=== PATIENT | female | born 1965 | race Caucasian/White ===

== ENCOUNTER 2018-03-23 13:07 | Outpatient (CLI) | payer BC, SELFPAY ==
--- NOTE | 2018-03-23 13:30 | DI.MAMMO_ITS ---
SYMPTOM/DIAGNOSIS: BREAST CA SCREENING Z12.31 MAMMOGRAMS: Mammograms were interpreted according to the usual protocol including computer analysis with CAD system, tomosynthesis and C view imaging. No masses or microcalcifications are seen. There is nothing to suggest malignancy. Breast density B. IMPRESSION: Category 1, breast density B. Negative mammogram. Routine screening is recommended. SA ASSESSMENT OF FINDINGS: Negative. Category 1. Patient will receive a letter notifying them of these results. BI-RADS category B. There are scattered areas of fibroglandular density.
== END 2018-03-23 13:27 ==
PROVIDERS: PCP Family Medicine; Visit Provider Nurse Practitioner Women's Health
DX: Z12.31 Encounter for screening mammogram for malignant neoplasm of breast (principal)
CPT/HCPCS: 77063; 77067

== ENCOUNTER 2018-04-06 16:06 | Outpatient (REF) | payer MEDICAID, SELFPAY | END 2018-04-06 16:26 | LOC: LBN 16:06 | PROVIDERS: PCP Family Medicine; Visit Provider Nurse Practitioner Family | DX: R30.0 Dysuria (principal) | CPT/HCPCS: 87086 ==

== ENCOUNTER 2018-08-07 11:21 | Outpatient (REF) | payer MEDICAID, SELFPAY ==
[2018-08-07 20:47] LABS: Abs Immature Grans 0.01 k/cumm (0.0-0.09); Absolute Basophil Count 0.02 k/cumm (0.0-0.2); Absolute Eosinophil Count 0.13 k/cumm (0.0-0.7); Absolute Monocyte Count 0.55 k/cumm (0.11-0.7); Absolute Neutrophil Count 3.06 k/cumm (1.2-6.7); Basophils % 0.4; Eosinophils % 2.7; HCT 38.9 % (36.0-46.0); HGB 13.2 g/dL (12.0-15.5); Immature Grans % 0.2; Lymphocytes % 22.6; Mean Corp. HGB Concentration 33.9 g/dL (32.0-36.0); Mean Corpuscular Volume 88.4 fL (80-95); Mean Platelet Volume 9.2 fL (8.0-11.0); Monocytes % 11.3; Neutrophils % 62.8; Platelet Count 342 x1000/uL (130-400); RBC Distribution Width 12.5 % (11.7-14.6); White Blood Cell Count 4.87 k/cumm (4.4-10.8)
[2018-08-07 21:00] LABS: Iron 101 ug/dL (50-175)
[2018-08-07 21:32] LABS: ALT 28 U/L (12-78); AST 22 U/L (15-37); Albumin 3.8 g/dL (3.4-5.0); Alkaline Phosphatase 103 U/L (46-116); Anion Gap 7.2 mmol/L (3-11); BUN 13 mg/dL (7-18); Bilirubin, Total 0.3 mg/dL (0.2-1.0); CO2 30.8 mmol/L (21.0-32.0); CREATININE 0.73 mg/dL (0.55-1.02); Calcium 9.1 mg/dL (8.5-10.1); Chloride 105 mmol/L (98-107); Glucose 77 mg/dL (70-100); Potassium 4.1 mmol/L (3.5-5.1); Sodium 143 mmol/L (136-145); TSH (W/Ref FT4) 1.88 uIU/mL (0.358-3.74); Total Protein 7.4 g/dL (6.4-8.2)
[2018-08-07 22:37] LABS: Vitamin B12 268 pg/mL (193-986)
== END 2018-08-07 11:41 ==
LOC: NCHCN 11:21
PROVIDERS: PCP Family Medicine; Visit Provider Family Medicine
DX: R53.83 Other fatigue (principal)
CPT/HCPCS: 80053; 82607; 83540; 84443; 85025

== ENCOUNTER 2019-04-14 01:33 | Outpatient (CLI) | payer BC, SELFPAY ==
--- NOTE | 2019-04-14 12:26 | DI.MAMMO_ITS ---
EXAM: MAMMO SCREENING CLINICAL HISTORY: SCREENING, Z12.31 TECHNIQUE: Mammograms were interpreted according to the usual protocol including computer analysis w CURRENT CAD system, tomosynthesis and C-view imaging. COMPARISON: [id number] FINDINGS: The breasts are composed of scattered areas of fibroglandular density, breast density category B. No dominant masses or microcalcifications are seen. Examination is compared with prior examinations from 2009 through 2018 and there has been no significant interval change. IMPRESSION: There is no evidence of malignancy. Yearly screening mammography is recommended. Category 1. BI-RADS Cat 1 - Negative Breast Density - Category B - Scattered areas of fibroglandular density
== END 2019-04-14 01:53 ==
PROVIDERS: PCP Family Medicine; Visit Provider Family Medicine
DX: Z12.31 Encounter for screening mammogram for malignant neoplasm of breast (principal)
CPT/HCPCS: 77063; 77067

== ENCOUNTER 2020-04-20 08:01 | Day surgery (SDC) | payer BC, SELFPAY ==
[2020-04-20 08:12] VITALS: BP 142/76; PULSE 60; RESP 18; TEMP 36.5; O2SAT 98
[2020-04-20] MEDS: Lactated Ringers 1,000 ML 80 ML IV (09:01)
--- NOTE | 2020-04-20 10:10 | W.PM.DSUDISC ---
Discharge Plan Disposition Patient Disposition: HOME Condition: Good Discharge Details Reason For Visit: colon scope Attending Provider: rBenda Gaines Primary Care Provider: Corinne Melo Home Meds and New Rx's Prescriptions: Continued lisinopril 5 mg tablet 5 mg PO DAILY RF: 0 escitalopram oxalate 20 mg tablet 10 mg PO DAILY 90 Days RF: 0 metformin 500 mg tablet 1,000 mg PO BID RF: 0 Lumigan 0.01 % drops 1 drp OP DAILY RF: 0 oxybutynin chloride 10 mg tablet extended release 24hr 10 mg PO DAILY RF: 0 Discontinued polyethylene glycol 3350 17 gram/dose powder 238 g PO ONCE Qty: 238 RF: 0 bisacodyl [Dulcolax (bisacodyl)] 5 mg tablet,delayed release (DR/EC) 5 mg PO ONCE Qty: 4 RF: 0 Discharge Instructions Additional Instructions: Findings:normal colon Follow up: repeat in 10 yrs time Please call if you develop: fevers >101.5 Nausea or Vomiting Abdominal pain that is not transient DAY SURGERY UNIT POST COLONOSCOPY INSTRUCTIONS 1. Because there will be medication in your system for the next 24 hours, you may feel a little sleepy. Your coordination will be affected. Therefore: a. Do not drive or operate dangerous equipment for 24 hours. b. Do not drink alcohol beverages for 24 hours (not even beer). c. Plan to go home and rest for the day. 2. Generally there are no restrictions on your activity after a day or so has gone by, but you may feel a bit fatigued for a few days. 3 After you arrive home you may have a light meal and return to a normal diet as you can tolerate it without feeling sick to your stomach. 4. After surgery, you may feel pain or discomfort. This should be only transient, but if it persists please contact your doctor. 5. If there are any questions regarding the findings of your procedure, please feel free to contact your doctor. 6. If you are unable to contact your doctor with a problem, contact the hospital at [phone]. 7. Continue all your regular medications unless directed otherwise. I understand the above instructions and have no questions. Signature of Patient or Responsible Adult Escort Date/Time Name of Responsible Adult Escort Signature of Nurse Date/Time Discharge Orders Discharge Orders: Discharge Order (Routine); Ordered 04/20/20 Ordered By: Brenda Gaines DS: Diagnosis Discharge Diagnosis (1) External hemorrhoids without complication: Status: Acute
--- NOTE | 2020-04-20 10:15 | W.COLOREPORT ---
Date of service: 04/20/20 Time of Service: 10:15 Colonoscopy Report Date of procedure: 04/20/20 Pre-op diagnosis general: colon screen Post-op diagnosis procedure note: same Surgeon: Brenda Gaines Anesthesia proc note operative: GETA Estimated blood loss (mL): 0 Pathology: none sent Complications: None Disposition: same day Prep: Miralax/Dulcolax Retraction Time: 10 mins Procedure Description: After informed consent was obtained the patient was taken to the procedure room and placed in a left decubitous position. Monitors were applied and a time out was done. The patients name, date of , procedure, allergies to medications and metal in their body was reviewed. The patient was then sedated. Once sedated and comfortable a rectal exam was done. External exam hemorrhoids- no inflammation. Internal exam revealed a normal sphincter tone and no palpable masses. The scope was then introduced and retrofelexed. No internal hemorrhoids were identified. The scope was then advanced to the cecum w/out difficulty. The TI and appendiceal orifice were identified. The prep was good. The scope was then slowly retracted over 10 minutes back into the rectum. no AVM's/polyps/diverticula. The scope was removed and the patient was woken up and taken back to Same day surgery in stable condition. The patient tolerated the procedure well and there were no immediate complications. Follow up: The patient should follow up in 10 years unless they develop changes in bowel habits or other new gastrointestinal complaints.
[2020-04-20 10:30] VITALS: BP 130/74; PULSE 49; RESP 17; TEMP 36.3; O2SAT 100
== END 2020-04-20 11:31 | disposition home or self-care (01) ==
PROVIDERS: PCP Family Medicine; Visit Provider Surgery
PROC: 0DJD8ZZ Inspection of Lower Intestinal Tract, Via Natural or Artificial Opening Endoscopic (ICD-10-PCS; CPT 45378; principal; 2020-04-20 09:15)
DX: Z12.11 Encounter for screening for malignant neoplasm of colon (principal); K64.4 Residual hemorrhoidal skin tags; I10 Essential (primary) hypertension; E11.9 Type 2 diabetes mellitus without complications
CPT/HCPCS: 45378; J2001; J2405

== ENCOUNTER 2020-06-14 19:05 | Outpatient (REF) | payer BC, SELFPAY ==
[2020-06-16 14:47] LABS: COVID-19 RT-PCR UVMMC Result Negative (Negative)
== END 2020-06-14 19:25 ==
LOC: NCHCN 19:05
PROVIDERS: PCP Family Medicine; Visit Provider Family Medicine
DX: Z20.828 Contact with and (suspected) exposure to other viral communicable diseases (principal)
CPT/HCPCS: U0003

== ENCOUNTER 2020-07-31 09:05 | Outpatient (REF) | payer BC, SELFPAY ==
[2020-07-31 14:04] LABS: ALT 36 U/L (14-59); AST 20 U/L (15-37); Alkaline Phosphatase 129 U/L (46-116); Anion Gap 6.3 mmol/L (3-11); BUN 13 mg/dL (7-18); Bilirubin, Total 0.4 mg/dL (0.2-1.0); CO2 30.7 mmol/L (21.0-32.0); CREATININE 0.6 mg/dL (0.55-1.02); Calcium 9.4 mg/dL (8.5-10.1); Calculated LDL 132 mg/dL (<100); Chloride 104 mmol/L (98-107); Cholesterol 214 mg/dL (<200); Glucose 124 mg/dL (74-106); HDL Cholesterol 52 mg/dL (40-60); Potassium 4.6 mmol/L (3.5-5.1); Sodium 141 mmol/L (136-145); Total Protein 7.7 g/dL (6.4-8.2); Triglyceride 150 mg/dL (<150)
[2020-07-31 14:18] LABS: Hemoglobin A1C 7.6 % (<5.7)
== END 2020-07-31 09:25 ==
LOC: NCHCN 09:05
PROVIDERS: PCP Family Medicine; Visit Provider Physician Assistant
DX: E11.9 Type 2 diabetes mellitus without complications (principal); R51.9 Headache, unspecified; B07.9 Viral wart, unspecified
CPT/HCPCS: 80053; 80061; 83036

== ENCOUNTER 2020-10-26 11:47 | Outpatient (REF) | payer BC, SELFPAY ==
--- NOTE | 2020-10-26 11:15 | PAPFT_PTH ---
PATIENT: Lauren Mccoy LOC: [facility] U#:[id number] AGE/SX: 55/F ROOM: RE10/26/[address]: MITCH Howard : 1965 BED: DIS: 10/26/2020 SPEC #: [id number] RECD: 10/26/20 13:25 STATUS: CHAGO REEtienne #: [id number] SALLY: 10/26/20 11:[address]: Nina Blanco DEPT: [facility] Cytology RECD BY: Margi Sauceda ENTERED: 10/26/20 13:25 SP TYPE: PAPFT OTHR DR: Corinne Melo Tissues: 1 - CX/ENDOCX FOR PAP SMEARS Procedures: PAP THIN PREP/UVM Screening HPV DNA PROBE Comments: [id number]
== END 2020-10-26 11:48 | disposition home or self-care (01) ==
LOC: LBN 11:47
PROVIDERS: PCP Family Medicine; Visit Provider Nurse Practitioner Family
DX: Z12.4 Encounter for screening for malignant neoplasm of cervix (principal); Z11.51 Encounter for screening for human papillomavirus (HPV)
CPT/HCPCS: 88142; 87624

== ENCOUNTER 2020-10-31 01:12 | Outpatient (CLI) | payer BC, SELFPAY ==
--- NOTE | 2020-10-31 08:00 | DI.MAMMO_ITS ---
Exam(s) MAMMO SCREENING EXAM: MAMMO SCREENING CLINICAL HISTORY: screening TECHNIQUE: Bilateral full field digital CC and MLO mammographic images were obtained with 3D tomosyn thesis and utilizing computer aided detection (CAD). COMPARISON: Available for comparison. FINDINGS: Masses/Architectural Distortion: There is a new 9 mm nodule in the upper outer quadrant of the right breast. There are no areas of architectural distortion in the breasts. Microcalcifications: No suspicious pleomorphic-type are seen. Skin Thickening/Nipple Retraction: None. IMPRESSION: 1. New 9 mm nodule in the upper outer quadrant of the right breast centrally. 2. Further evaluation with spot compression views and a right breast ultrasound are recommended. BI-RADS Category 0 - Assessment Incomplete: Need additional imaging evaluation Breast Density - Category B - Scattered areas of fibroglandular density Breast density category C or D implies that the patient has dense breast tissue. Dense breast tissue is very common and is not abnormal but dense breast tissue can make it harder to find cancer on a ma mmogram. Also, dense breast tissue may increase their breast cancer risk. This information about the result of the mammogram report was provided to the patient to raise their awareness. Use this report when you speak with the patient about their risks for breast cancer, which includes their family hist ory. At that time, you may recommend for more screening tests (Ultrasound or MRI) as they might be us eful based on their risk. A negative radiographic report should not delay biopsy if a dominant or clinically suspicious mass is present. Up to ten percent of cancers are not identified on mammography. A negative report may reinforce clinical impression. Adenosis and dense breasts may obscure an underlying neoplasm. False positive reports average 6 to 10%. Patient will receive a letter notifying them of these results.
== END 2020-10-31 01:32 ==
PROVIDERS: PCP Family Medicine; Visit Provider Nurse Practitioner Family
DX: Z12.31 Encounter for screening mammogram for malignant neoplasm of breast (principal); R92.8 Other abnormal and inconclusive findings on diagnostic imaging of breast
CPT/HCPCS: 77063; 77067

== ENCOUNTER 2020-11-01 01:41 | Outpatient (CLI) | payer BC, SELFPAY ==
--- NOTE | 2020-11-01 | DI.US_ITS ---
Exam(s) MG MAMMO SCREEN CALL BACK UNI US BREAST RT LIMITED EXAM: MG MAMMO SCREEN CALL BACK UNI and U/S breast RT limited CLINICAL HISTORY: F/U MAMMO, ,NEW 9 MM NODULE UOQ. TECHNIQUE: Craniocaudal and mediolateral oblique Full Field Digital Mammography views of the right b reast with Computer Aided Diagnosis followed by Tomosynthesis and right breast ultrasound. COMPARISON: Priors available for comparison. FINDINGS: Mammography/Tomosynthesis: Masses/Architectural Distortion: The nodule in the upper outer quadrant of the right breast persists on the additional views. No associated microcalcifications are seen. Microcalcifictions: No suspicious pleomorphic-type are seen. Skin Thickening/Nipple Retraction: None. Right breast US: Echotexture: Normal appearance of the glandular tissue. Shadowing: No suspicious foci. Cyst: At the 9 o'clock position 4 cm from the nipple there is a cluster of cysts measuring in aggrega te 0.8 cm. This may reflect the mammographic finding. Solid lesions: None seen. Ductal dilation: None. IMPRESSION: 1. No definite evidence for malignancy at this time. 2. A 3 month follow-up right mammogram is recommended for re-evaluation. 3. The findings were discussed with the patient on the date of the examination. BI-RADS Category 3 - Probably Benign Finding: Recommend follow-up imaging in 3 months Breast Density - Category B - Scattered areas of fibroglandular density Breast density Category C or D implies that the patient has dense breast tissue. Dense breast tissue can make it harder to find cancer on a mammogram. Dense breast tissue is also associated with an incr eased risk of breast cancer. This information about the result of the mammogram report was provided to the patient to raise their awareness. Use this report when you speak with the patient about their risks for breast cancer, which includes their family history. At that time, you may recommend additional screening tests (Ultrasoun d or MRI) as these tests may add significant information. A negative radiographic report should not delay biopsy if a dominant or clinically suspicious mass is present. Up to ten percent of cancers are not identified on mammography. A negative report may reinforce clinical impression. Adenosis and dense breasts may obscure an underlying neoplasm. False positive reports average 6 to 10%. Patient will receive a letter notifying them of these results.
== END 2020-11-01 02:01 ==
PROVIDERS: PCP Family Medicine; Visit Provider Nurse Practitioner Family
DX: Z12.31 Encounter for screening mammogram for malignant neoplasm of breast (principal); R92.8 Other abnormal and inconclusive findings on diagnostic imaging of breast; N60.11 Diffuse cystic mastopathy of right breast
CPT/HCPCS: 76642; 77063; 77067

== ENCOUNTER 2021-02-07 02:13 | Outpatient (CLI) | payer BC, SELFPAY ==
--- NOTE | 2021-02-07 06:45 | DI.MAMMO_ITS ---
Exam(s) MG MAMMO DIAGNOSTIC UNI EXAM: MG MAMMO DIAGNOSTIC UNI CLINICAL HISTORY: 3 month f/u right mammogram,R92.8. TECHNIQUE: Craniocaudal and mediolateral oblique Full Field Digital Mammography views of the right breast with Computer Aided Diagnosis followed by Tomosynthesis. COMPARISON: MG Screening Bilat Mammo from 11/13/2016 MG L. Spot - Same Day from 11/19/2016 MG L. Spot - Same Day from 11/19/2016 MG MG MAMMO SCREENING from 04/14/2019 MG MG MAMMO SCREENING from 10/31/2020 MG MG MAMMO SCREENING from 10/31/2020 US BREAST RT LIMITED from 11/01/2020 MG MG MAMMO SCREEN CALL BACK UNI from 11/01/2020 MG MG MAMMO SCREEN CALL BACK UNI from 11/01/2020 US BREAST RT LIMITED from 11/01/2020 FINDINGS: Mammography/Tomosynthesis: The previously noted area of nodularity seen in the central right breast is no longer visible. Masses/Architectural Distortion: None seen. Microcalcifictions: No suspicious pleomorphic-type are seen. Skin Thickening/Nipple Retraction: None. IMPRESSION: 1. No evidence of malignancy is noted. 2. Unless there is more urgent need, follow-up screening mammography is recommended, as per [place] [employer] guidelines. 3. The findings were discussed with the patient on the date of the examination. BI-RADS Category 1 - Negative Breast Density - Category B - Scattered areas of fibroglandular density A negative radiographic report should not delay biopsy if a dominant or clinically suspicious mass is present. Up to ten percent of cancers are not identified on mammography. A negative report may reinforce clinical impression. Adenosis and dense breasts may obscure an underlying neoplasm. False positive reports average 6 to 10%. Patient will receive a letter notifying them of these results.
== END 2021-02-07 02:33 ==
PROVIDERS: PCP Family Medicine; Visit Provider Nurse Practitioner Family
DX: Z12.31 Encounter for screening mammogram for malignant neoplasm of breast (principal); R92.8 Other abnormal and inconclusive findings on diagnostic imaging of breast; N64.59 Other signs and symptoms in breast
CPT/HCPCS: 77061; 77065; G0279

== ENCOUNTER 2021-11-06 10:20 | Outpatient (REF) | payer BC, SELFPAY ==
[2021-11-07 15:30] LABS: COVID-19 RT-PCR UVMMC Result Negative (Negative)
== END 2021-11-06 10:21 | disposition home or self-care (01) ==
LOC: LBN 10:20
PROVIDERS: PCP Family Medicine; Visit Provider Nurse Practitioner Family
DX: Z20.822 Contact with and (suspected) exposure to COVID-19 (principal); R42 Dizziness and giddiness
CPT/HCPCS: U0003

== ENCOUNTER 2022-06-04 13:57 | Outpatient (REF) | payer BC, SELFPAY ==
[2022-06-04 16:22] LABS: Anion Gap 6.4 mmol/L (3-11); BUN 10 mg/dL (7-18); CO2 30.6 mmol/L (21.0-32.0); CREATININE 0.7 mg/dL (0.55-1.02); Calcium 9.1 mg/dL (8.5-10.1); Calculated LDL 117 mg/dL (<100); Chloride 103 mmol/L (98-107); Cholesterol 199 mg/dL (<200); Estimated GFR 100.19 (mL/min/1.73m2); Glucose 140 mg/dL (74-106); HDL Cholesterol 54 mg/dL (40-60); Potassium 4.3 mmol/L (3.5-5.1); Sodium 140 mmol/L (136-145); Triglyceride 144 mg/dL (<150)
[2022-06-04 16:35] LABS: COMMENT (LAB VIEW ONLY) 32.22 mg/dL; Microalb ug/mg Crea 8.1 ug/mg Cr
== END 2022-06-04 13:58 | disposition home or self-care (01) ==
LOC: NCHCN 13:57
PROVIDERS: PCP Family Medicine; Visit Provider Nurse Practitioner Family
DX: E11.9 Type 2 diabetes mellitus without complications (principal); E66.9 Obesity, unspecified
CPT/HCPCS: 80048; 80061; 82043; 82570

== ENCOUNTER 2022-07-31 15:22 | Emergency (ER) | payer BC, SELFPAY ==
--- NOTE | 2022-07-31 15:15 | RT.EKG_ITS ---
APPROVED REPORT Exam: Resting ECG Reason for Exam: Arm numbness Patient Location: E HR:56 bpm ECG Measurements Heart Rate 56 AXIS VT 196 P 6 QRSd 81 QRS 36 QT 398 T 34 QTc 386 Conclusion Sinus bradycardia...rate< 60 Low voltage, precordial leads...precordial leads <1.0mV
[2022-07-31 15:27] VITALS: TEMP 36.6
--- NOTE | 2022-07-31 15:30 | DI.MRI_ITS ---
Exam(s) MR BRAIN WO EXAM: MR BRAIN WO CLINICAL HISTORY: ?cva. TECHNIQUE: Multiplanar multisequence MRI of the brain was performed. CONTRAST MATERIAL: Noncontrast. COMPARISON: No exams were available for comparison FINDINGS: VENTRICLES AND EXTRA AXIAL SPACES: Normal in size and morphology for the patient's age. HEMORRHAGE: None. CEREBRAL PARENCHYMA: No focus of restricted diffusion to suggest acute infarct. No space-occupying le leeanna identified. MIDLINE SHIFT: None. BRAINSTEM/CEREBELLUM: Normal. VISUALIZED PARANASAL SINUSES/MASTOIDS: Clear. OTHER FINDINGS: Orbits and pituitary are unremarkable. Vascular flow voids are intact. IMPRESSION: Unremarkable MRI of the brain. DATA REPOSITORY:
--- NOTE | 2022-07-31 15:30 | DI.MRI_ITS ---
Exam(s) MR ANGIO BRAIN WO CLINICAL HISTORY: ?stroke. TECHNIQUE: 3D gyhi-xb-wedsni study was performed without contrast. COMPARISON: None. FINDINGS: Carotid Arteries: Petrous: Normal. Cavernous: Normal. Cerebral: Normal. Middle Cerebral Arteries: Right: No aneurysm or significant stenosis. Left: No aneurysm or significant stenosis. Anterior Cerebral Arteries: Right: No aneurysm or significant stenosis. Left: No aneurysm or significant stenosis. Posterior cerebral arteries: Right: No aneurysm or significant stenosis Left: No aneurysm or significant stenosis Vertebral Arteries: Right: No aneurysm or significant stenosis. No dissection. Left: No aneurysm or significant stenosis. No dissection.. Basilar Artery: No aneurysm or significant stenosis. Small Vessels: No evidence of beading. IMPRESSION: Normal MRA examination of the [place]. DATA REPOSITORY:
--- NOTE | 2022-07-31 15:30 | DI.MRI_ITS ---
Exam(s) MR ANGIO NECK WO EXAM: MR ANGIO NECK WO CLINICAL HISTORY: ?stroke. TECHNIQUE: Multiplanar multisequence MRA of the Neck was performed. COMPARISON: MR MR ANGIO BRAIN WO from 07/31/2022 FINDINGS: Common Carotid: Right: No dissection, occlusion or significant stenosis. Left: No dissection, occlusion or significant stenosis. External Carotid: Right: No evidence of occlusion or significant stenosis. Left: No evidence of occlusion or significant stenosis. Internal Carotid: Right: No dissection, occlusion or significant stenosis. Left: No dissection, occlusion or significant stenosis. Vertebral Artery: Right: No dissection, occlusion or significant stenosis. Left: No dissection, occlusion or significant stenosis. The visualized paraspinal soft tissues are unremarkable. IMPRESSION: No evidence of dissection, occlusion or significant stenosis. DATA REPOSITORY:
[2022-07-31 15:31] VITALS: BP 156/82; PULSE 59; PULSE 62; RESP 10
[2022-07-31 15:33] VITALS: BP 156/82; PULSE 55; RESP 18; O2SAT 100
--- NOTE | 2022-07-31 15:44 | ED.GENADUL_ITS ---
Discharge Plan Disposition Patient Disposition: Home Condition: Stable Discharge Details Clinical Impression: Numbness, COVID Primary Care Provider: Unknown,Unknown ED Provider: Wily Romero Home Meds and New Rx's Prescriptions: Continued oxybutynin chloride 5 mg tablet 5 mg PO DAILY lisinopril 5 mg tablet 5 mg PO DAILY oxybutynin chloride 10 mg tablet extended release 24hr 10 mg PO DAILY Ozempic 0.25 mg or 0.5 mg(2 mg/1.5 mL) pen injector 1 device SUBCUT QWEEK Discharge Instructions Instructions: Paresthesia (ED) Additional Instructions: your MRI and blood work did not show concerning findings. You did incidentally test positive for covid follow up with your primary care provider if you feel more ill, have worsening weakness or difficulty breathing return to the emergency department Stand Alone Forms: POSITIVE COVID-19/NO TESTING Medical Decision Making 57 yo female with hx of htn, dm, who comes in with 4 days of left arm numbness and one day of left leg numbness. She states she was seen by her pcp office 4 days ago and was referred to [facility] and at that time she had a rash under her left arm that they diagnosed as an infection and was treated with oral antibiotics and rash resolved. She states her left hand and forearm numbness never resolved and last night started to have numbness in the left foot. She denies vision changes, weakness, falls, walking normally and able to drive here without difficulty. No chest pain, back pain, neck pain, headaches, fevers, chills, abdominal pain. She arrives stable speaking in full sentences. She has clear speech, CN II-XII intact. No drift, caox4. Her NIH on arrival is 1 due to very mild change in soft sensation in her left hand and left foot to soft touch, she states she can feel the touch but it feels different to the other side. She states the numbness is throughout the whole hand and not localized to certain areas or fingers and is also throughout the foot. Given reassuring exam cva unlikely but will obtain MRI to evaluate further, symptoms started 4 days ago so not a lytic or interventional candidate. She has no back pain, no fevers/chills, no ivdu so doubt entities such as discititis, osteo, spinal epidural abscess. Will check cbc, cmp and reassess. Suspect this could be peripheral neuropathy from her diabetes. pt stable, mri and mra unremarkable, blood work also unremarkable, she is positi ve incidentally for covid, no respiratory symptoms. She still has no deficits other than subtle decrease to soft tocuh in the left hand and left foot, normal motor exam. Discussed results with pt and given reassuring workup she is comfortable with d/c and follow up with her pcp. She is willing to take paxlovid so this was provided as well, return precautions given Differential Diagnosis Differential Diagnosis: electrolyte abnormality, neuropathy Imaging Data Radiologic Study: Attestation: I personally reviewed and interpreted this imaging study as follows: Imaging: MRI Radiologist's impression: no acute findings mri and mra Lab Data Lab results reviewed: Yes I reviewed the patient's lab results. ECG Data Attestation: I personally reviewed and interpreted this ECG (s) as follows: Prior ECG tracings: not available for review Interpretation: sinus bradycardia, rate of 56, pr 196, no acute st t wave ischemic findings HPI General Mode of arrival: ambulatory . Date/Time Provider Initiated Documentation: 07/31/22 15:24 . Limitations to Documentation: no limitations . Information obtained by: patient . History of Present Illness 57 year old F presents to the emergency department with the chief complaint of left arm and leg numbness, described as moderate, Patient started experiencing this day(s) (4) and it has been constant. No relieving factors improve symptom(s), No exacerbating factors reported . Patient notes denies chest pain, fever/chills, headaches and nausea/vomiting. Patient did receive the following treatments prior to arrival, none Related Data Home Medications Medication Instructions Recorded Confirmed lisinopril 5 mg tablet 5 mg PO DAILY 02/25/20 07/31/22 oxybutynin chloride 10 mg 10 mg PO DAILY 02/25/20 07/31/22 tablet,extended release 24 hr oxybutynin chloride 5 mg tablet 5 mg PO DAILY 10/26/20 07/31/22 semaglutide 0.25 mg or 0.5 mg (2 1 device subcut QWEEK 07/31/22 07/31/22 mg/1.5 mL) subcutaneous pen injector (Ozempic) Allergies Allergy/AdvReac Type Severity Reaction Status Date / Time No Known Allergies Allergy Verified 07/31/22 15:30 General Stated Complaint: CVA/TIA MEENA: 3 Review of Systems All systems reviewed & are unremarkable except as noted in HPI and below Constitutional Constitutional: Denies chills, Denies fever(s) and Denies weakness Eyes Eyes: Denies loss of vision Cardiovascular Cardiovascular: Denies chest pain and Denies dyspnea Respiratory Respiratory: Denies cough and Denies dyspnea Gastrointestinal Gastrointestinal: Denies abdominal pain, Denies nausea and Denies vomiting Musculoskeletal Musculoskeletal: Denies joint swelling Neurologic Neurologic: Denies loss of vision and Denies weakness PFSH All Active Problems (Updated 07/31/22 @ 17:56 by Wily Romero MD) Numbness (Acute) COVID (Acute) Diabetes (Chronic) Depression (Chronic) External hemorrhoids without complication (Acute) Medical History (Updated 07/31/22 @ 17:56 by Wily Romero MD) Anxiety associated with depression Benign cardiac murmur BMI 34.0-34.9,adult Depression Headache History of type 2 diabetes mellitus Hyperlipidemia Incontinence Mixed incontinence urge and stress 05/[address] Reese. Rx for Mirabergron. Viral warts left forearm Surgical History (System 10/26/20 @ 12:14 by Nakia Zimmer) bladder support [facility] > 17yrs ago. Doesnt know procedure and records not available. Gastric Bypass 2003. Wt decreased from 300lbs to 150lbs. History of colonoscopy Ligation of fallopian tube Family History (System 10/26/20 @ 12:14 by Nakia Zimmer) Mother , stomach cancer Myocardial infarction Father Memory loss Mother Diabetes Breast cancer Other Stomach cancer Social History (System 10/26/20 @ 12:14 by Nakia Zimmer) Smoking/Tobacco Use Status: Never Smoking risk assessment performed?: Yes Drug use: Never Substance use type: does not use Current gender identity: female Do you feel safe at home: Yes Do you feel safe in your relationship?: Yes Female Reproductive History Menstrual control method: permanent sterilization History History 2 Para Hx # Term Pregnancies 0 Multiple births Hx # Pregnancies Ectopic pregnancies AB induced Hx Number of Living Children AB spontaneous Exam Const General: no acute distress Orientation: alert HENMT Head: normal to inspection Ears: external ears normal General nose exam: external nose normal Mouth: moist mucous membranes Eyes General: appearance normal, both eyes and all related structures Neck Neck: normal visual inspection Resp Effort & Inspection: normal respiratory effort and able to speak in complete sentences Cardio Rate: regular rate Skin General skin exam: no rashes or lesions noted Neuro General: patient alert, patient oriented x3, moves all extremities, no focal motor deficits and CN's II-XI intact bilaterally Extrem General: normal to inspection Psych Mental Status: mental status grossly normal Course Vital Signs Vital signs: Vital Signs Temperature 36.6 C 07/31/22 15:27 Temperature 36.6 C 07/31/22 15:27 Temperature Source Temporal Artery Scan 07/31/22 15:27 Pulse 55 L 07/31/22 15:33 Respiratory Rate 18 07/31/22 15:33 Respiratory Effort 07/31/22 15:36 Blood Pressure 156/82 H 07/31/22 15:33 Pulse Oximetry 100 07/31/22 15:33 Oxygen Delivery Method Room Air 07/31/22 15:33 Oxygen Flow Rate 0 07/31/22 15:33
[2022-07-31] MEDS: LORazepam 2 MG/ML VIAL 1 MG IVP (15:49)
[2022-07-31 16:43] VITALS: BP 139/74; PULSE 60; PULSE 61; RESP 20
[2022-07-31 16:43] LABS: Source Nasal/Nares
[2022-07-31 16:51] LABS: Abs Immature Grans 0.02 10^3/uL (0.0-0.06); Absolute Basophil Count 0.05 10^3/uL (0.0-0.2); Absolute Eosinophil Count 0.16 10^3/uL (0.0-0.7); Absolute Monocyte Count 0.71 10^3/uL (0.1-0.8); Absolute Neutrophil Count 4.41 10^3/uL (1.2-6.7); Basophils % 0.6; HCT 42.4 % (36.0-46.0); HGB 14.4 g/dL (11.2-15.7); Immature Grans % 0.3; Lymphocytes % 32.7; MCH 29.7 pg (27.0-33.0); MCV 87 fL (80-95); MPV 8.5 fL (8.0-11.0); Monocytes % 8.9; Neutrophils % 55.5; Platelet Count 370 10^3/uL (130-400); RBC 4.85 10^6/uL (3.93-5.22); RDW 12.3 % (11.7-14.6); RDW-SD 39.2 fL; WBC 7.95 10^3/uL (4.4-10.8)
[2022-07-31 17:01] VITALS: BP 128/77; PULSE 59; PULSE 61; RESP 20
[2022-07-31 17:01] LABS: INR 0.9 (0.9-1.1); PTT Activated 24.9 sec (21.0-27.5); Prothrombin Time 9.5 sec (9.3-11.0)
[2022-07-31 17:10] LABS: ALT 36 U/L (14-59); AST 33 U/L (15-37); Albumin 4.2 g/dL (3.4-5.0); Alkaline Phosphatase 121 U/L (46-116); BUN 13 mg/dL (7-18); Bilirubin, Total 0.3 mg/dL (0.2-1.0); CREATININE 0.8 mg/dL (0.55-1.02); Calcium 9.3 mg/dL (8.5-10.1); Chloride 104 mmol/L (98-107); Estimated GFR 85.35 (mL/min/1.73m2); Glucose 108 mg/dL (74-106); Potassium 3.7 mmol/L (3.5-5.1); Sodium 140 mmol/L (136-145); TSH (W/Ref FT4) 2.78 uIU/mL (0.36-3.74); Total Protein 8.1 g/dL (6.4-8.2); Troponin I < 50 ng/L (<or=60)
[2022-07-31 17:20] LABS: COVID-19 PCR POSITIVE (Negative)
[2022-07-31 17:31] VITALS: BP 103/80; PULSE 79
--- NOTE | 2022-07-31 18:22 | NUR.NOTE ---
Nursing Note: Patient left behind her information from [facility]. It has been mailed to her.
== END 2022-07-31 18:14 | disposition home or self-care (01) ==
PROVIDERS: Emergency Provider Emergency Medicine
DX: R07.1 Chest pain on breathing (principal); R20.2 Paresthesia of skin; I10 Essential (primary) hypertension; E11.9 Type 2 diabetes mellitus without complications
CPT/HCPCS: 70544; 70547; 80053; 87635; 93005; 96374; 99284; 70551; 83735; 84443; 84484; 85025; 85610; 85730; 93010; 99285; J2060

== ENCOUNTER 2022-08-19 01:53 | Outpatient (CLI) | payer BC, SELFPAY ==
--- NOTE | 2022-08-19 07:35 | DI.MAMMO_ITS ---
Exam(s) MAMMO SCREENING EXAM: MAMMO SCREENING CLINICAL HISTORY: SCREENING,Z12.39 TECHNIQUE: Mammograms were interpreted according to the usual protocol including computer analysis w [employer] CAD system, tomosynthesis and C-view imaging. COMPARISON: 2013 through 2020 FINDINGS: The breasts are composed of scattered fibroglandular densities, Breast Density category B. No suspicious masses or suspicious microcalcifications are seen. No skin thickening or abnormal axillary lymph nodes are seen. There has been no significant change from prior exams. IMPRESSION: BI-RADS Category 1, Negative mammogram Yearly screening mammography is recommended. Breast Density - Category B, scattered fibroglandular densities. A negative radiographic report should not delay biopsy if a dominant or clinically suspicious mass is present. Up to ten percent of cancers are not identified on mammography. A negative report may reinforce clinical impression. Adenosis and dense breasts may obscure an underlying neoplasm. False positive reports average 6 to 10%. Patient will receive a letter notifying them of these results.
== END 2022-08-19 02:13 ==
PROVIDERS: Visit Provider Nurse Practitioner Family
DX: Z12.31 Encounter for screening mammogram for malignant neoplasm of breast (principal)
CPT/HCPCS: 77063; 77067

== ENCOUNTER 2022-11-27 18:30 | Outpatient (REF) | payer BC, SELFPAY ==
[2022-11-27 20:59] LABS: HCT 40.4 % (36.0-46.0); HGB 14.1 g/dL (11.2-15.7); MCH 30.4 pg (27.0-33.0); MCHC 34.9 % (32.0-36.0); MCV 87 fL (80-95); MPV 8.8 fL (8.0-11.0); Platelet Count 345 10^3/uL (130-400); RBC 4.64 10^6/uL (3.93-5.22); RDW 11.9 % (11.7-14.6); RDW-SD 38.4 fL; WBC 5.78 10^3/uL (4.4-10.8)
[2022-11-27 21:23] LABS: Iron 88 ug/dL (50-170); Total Iron Binding Capacity 343 ug/dL (250-450); Transferrin Sat 26 % (15-50)
[2022-11-27 21:24] LABS: Hemoglobin A1C 5.8 % (<5.7)
[2022-11-27 21:51] LABS: ALT 35 U/L (14-59); AST 31 U/L (15-37); Albumin 3.9 g/dL (3.4-5.0); Alkaline Phosphatase 97 U/L (46-116); Anion Gap 5.8 mmol/L (3-11); BUN 9 mg/dL (7-18); Bilirubin, Total 0.6 mg/dL (0.2-1.0); CO2 30.2 mmol/L (21.0-32.0); CREATININE 0.8 mg/dL (0.55-1.02); Calcium 8.9 mg/dL (8.5-10.1); Calculated LDL 94 mg/dL (<100); Chloride 105 mmol/L (98-107); Cholesterol 163 mg/dL (<200); Estimated GFR 85.35 (mL/min/1.73m2); Ferritin 30 ng/mL (8-252); Glucose 115 mg/dL (74-106); HDL Cholesterol 50 mg/dL (40-60); Magnesium 2.1 mg/dL (1.8-2.4); Potassium 3.1 mmol/L (3.5-5.1); Sodium 141 mmol/L (136-145); TSH (W/Ref FT4) 1.61 uIU/mL (0.36-3.74); Total Protein 7.7 g/dL (6.4-8.2); Triglyceride 99 mg/dL (<150); Vitamin B12 226 pg/mL (193-986)
[2022-11-27 22:26] LABS: Vitamin D 25 Total 25.2 ng/mL (30-100)
== END 2022-11-27 18:31 | disposition home or self-care (01) ==
LOC: NCHCN 18:30
PROVIDERS: Visit Provider Nurse Practitioner Family
DX: R53.83 Other fatigue (principal); E11.9 Type 2 diabetes mellitus without complications
CPT/HCPCS: 80053; 80061; 82306; 85027; 82607; 82728; 82746; 83036; 83540; 83550; 83735; 84443

== ENCOUNTER 2023-03-05 04:25 | Outpatient (CLI) | payer BC, SELFPAY ==
[2023-03-05 14:18] LABS: Hemoglobin A1C 5.5 % (<5.7)
[2023-03-05 14:20] LABS: Anion Gap 5.8 mmol/L (3-11); BUN 9 mg/dL (7-18); CO2 29.2 mmol/L (21.0-32.0); CREATININE 0.8 mg/dL (0.55-1.02); Calcium 8.9 mg/dL (8.5-10.1); Chloride 104 mmol/L (98-107); Estimated GFR 84.82 (mL/min/1.73m2); Glucose 91 mg/dL (74-106); Potassium 3.3 mmol/L (3.5-5.1); Sodium 139 mmol/L (136-145)
[2023-03-06 13:13] LABS: IgA 362 mg/dL (85-499); Interpretation (See Note); Tissue Transglutaminase IgA 1.2 U/mL (<4.0)
== END 2023-03-05 04:26 | disposition home or self-care (01) ==
PROVIDERS: PCP Nurse Practitioner Family; Visit Provider Nurse Practitioner Family
DX: R53.83 Other fatigue (principal); R20.2 Paresthesia of skin
CPT/HCPCS: 36415; 80048; 82784; 83516; 86364; 83036

== ENCOUNTER 2023-07-06 17:01 | Emergency (ER) | payer BC, SELFPAY ==
[2023-07-06 17:10] VITALS: BP 141/81; PULSE 70; O2SAT 98
--- NOTE | 2023-07-06 17:15 | DI.RAD_ITS ---
Exam(s) XR WRIST LT COMPLETE EXAM: XR WRIST LT COMPLETE CLINICAL HISTORY: left wrist pain. TECHNIQUE: 2D digital imaging was performed of the left wrist. Three images were obtained. PA, obl ique and lateral views were obtained. COMPARISON: No exams were available for comparison FINDINGS: BONES: There is an acute nondisplaced fracture through the distal metaphysis of the left radius. No bony destructive lesion is seen. JOINTS: The carpal bones are normally aligned. SOFT TISSUE: Normal. IMPRESSION: Acute distal left radial fracture as described. DATA REPOSITORY: RADIATION DOSE DELIVERED:
--- NOTE | 2023-07-06 17:23 | ED.GENADUL_ITS ---
HPI General Stated Complaint: Orthopedic MEENA: 4 Date/Time Provider Initiated Documentation: 07/06/23 17:15. Limitations to Documentation: no limitations. Information obtained by: patient. HPI Narrative: 58-year-old female without significant past medical history presents for evaluation of acute onset severe left wrist pain. Onset just prior to arrival. Patient was walking her dog when he pulled the leash and she fell onto outstretched left arm. She reports pain in the left wrist. Pain constant, severe, worse with movement. No associated numbness or tingling. Took Tylenol prior to arrival with no significant improvement in pain symptoms. She is right-hand dominant. Related Data Home Medications Medication Instructions Recorded Confirmed lisinopril 5 mg tablet 5 mg PO DAILY 02/25/20 07/31/22 oxybutynin chloride 10 mg 10 mg PO DAILY 02/25/20 07/31/22 tablet,extended release 24 hr oxybutynin chloride 5 mg tablet 5 mg PO DAILY 10/26/20 07/31/22 semaglutide 0.25 mg or 0.5 mg (2 1 device subcut QWEEK 07/31/22 07/31/22 mg/1.5 mL) subcutaneous pen injector (Ozempic) Allergies Allergy/AdvReac Type Severity Reaction Status Date / Time No Known Allergies Allergy Verified 07/31/22 15:30 PFSH All Active Problems (Updated 07/06/23 @ 18:02 by Darrell Blanco MD) Closed fracture of left distal radius (Acute) COVID (Acute) Diabetes (Chronic) Depression (Chronic) External hemorrhoids without complication (Acute) Medical History Hyperlipidemia Incontinence Anxiety associated with depression Benign cardiac murmur Viral warts left forearm Headache BMI 34.0-34.9,adult Mixed incontinence urge and stress 05/[address] Reese. Rx for Mirabergron. Depression History of type 2 diabetes mellitus Surgical History History of colonoscopy bladder support [facility] > 17yrs ago. Doesnt know procedure and records not available. Ligation of fallopian tube Gastric Bypass 2003. Wt decreased from 300lbs to 150lbs. Family History Mother , stomach cancer Myocardial infarction Father Memory loss Mother Diabetes Breast cancer Other Stomach cancer Social History Smoking/Tobacco Use Status: Never Smoking risk assessment performed?: Yes Drug use: Never Substance use type: does not use Current gender identity: female Do you feel safe at home: Yes Do you feel safe in your relationship?: Yes Female Reproductive History Menstrual control method: permanent sterilization History History 2 Para Hx # Term Pregnancies 0 Multiple births Hx # Pregnancies Ectopic pregnancies AB induced Hx Number of Living Children AB spontaneous Exam Narrative Exam Narrative: Review of Systems: All systems reviewed & are unremarkable except as noted in HPI and below Well-developed, no acute distress NACT PERRL, normal conjunctiva RRR Unlabored respiratory effort Nondistended abdomen Left wrist with swelling, deformity, 2+ radial pulse, no open wounds, neurovascularly intact with good cap refill. No rashes or lesions. no focal neurologic deficits Appropriate mood and affect Course Vital Signs Vital signs: Vital Signs Pulse 70 07/06/23 17:10 Blood Pressure 141/81 H 07/06/23 17:10 Pulse Oximetry 98 07/06/23 17:10 Pulse 70 07/06/23 17:10 Blood Pressure 141/81 H 07/06/23 17:10 Pulse Oximetry 98 07/06/23 17:10 Oxygen Delivery Method Room Air 07/06/23 17:10 Oxygen Flow Rate 0 07/06/23 17:10 Medical Decision Making Emergent evaluation of left wrist pain. Initial differential includes contusion, fracture, dislocation, ligamentous injury. Plan for pain control and imaging of the area. Will likely need reduction and splinting. X-ray reviewed. There is a distal radius fracture noted, no significant displacement. I do not feel that he would benefit from any manipulation of the area. A Velcro wrist brace was applied. Patient declines any additional narcotic pain medication. Referral was placed for orthopedic surgery. Follow- up plan discussed with the patient. Return precautions advised. Discharged in good condition. Medical Records Medical records reviewed: Yes I reviewed the patient's medical records. Quality:SDOH Health Related Social Needs: No Data to Display Discharge Plan Disposition Patient Disposition: Home Discharge Details Clinical Impression: Closed fracture of left distal radius Primary Care Provider: Torri Mendes ED Provider: Darrell Blanco Home Meds and New Rx's Prescriptions: No Action oxybutynin chloride 5 mg tablet 5 mg PO DAILY lisinopril 5 mg tablet 5 mg PO DAILY oxybutynin chloride 10 mg tablet extended release 24hr 10 mg PO DAILY Ozempic 0.25 mg or 0.5 mg(2 mg/1.5 mL) pen injector 1 device SUBCUT QWEEK Discharge Instructions Instructions: Wrist Fracture in Adults (ED) Additional Instructions: Keep arm in splint. Follow-up with orthopedic surgery, they should contact you tomorrow for follow-up appointment. Take Motrin and Tylenol as needed for pain. Keep arm elevated and apply ice pack to help with swelling and pain
--- NOTE | 2023-07-06 18:11 | DI.VRAD_ITS ---
PROCEDURE INFORMATION: Exam: XR Left Wrist Exam date and time: 07/06/2023 5:40 PM Age: 58 years old Clinical indication: Injury or trauma; Fall; Fracture, traumatic injury; Closed fracture; Wrist; Left TECHNIQUE: Imaging protocol: Radiologic exam of the left wrist. Views: 3 or more views. COMPARISON: No relevant prior studies available. FINDINGS: Bones/joints: Fracture of the distal metaphysis of the radius. No significant displacement or angulation. Normal carpal alignment. Joint spaces are unremarkable. Soft tissues: Posterior soft tissue swelling. IMPRESSION: Nondisplaced distal radius fracture Dictated and Authenticated by: Jose Francisco Negro MD. Ordering:MARK Quiroz MD
== END 2023-07-06 18:22 | disposition home or self-care (01) ==
PROVIDERS: Emergency Provider Emergency Medicine; PCP Nurse Practitioner Family
DX: S52.502A Unspecified fracture of the lower end of left radius, initial encounter for closed fracture (principal); M25.532 Pain in left wrist; W01.0XXA Fall on same level from slipping, tripping and stumbling without subsequent striking against object, initial encounter; I10 Essential (primary) hypertension
CPT/HCPCS: 25500; 99283; 73110

== ENCOUNTER 2023-07-14 14:42 | Outpatient (REF) | payer BC, SELFPAY ==
--- OUTSIDE RECORDS SUMMARY | 2023-07-14 14:43 | XMS_ITS | CCD ---
Author Name Unknown Address [address] [place] [address] [phone] Organization Unknown Address [address] [place] [address] [phone] Care Team Providers Care Computational Mathematician Name Role Phone MO SHEPARD Attending Physician [phone] [place] SHEPARD Er Physician 0 [phone] ASHLY Hernandez Registered Nurse [phone] Vital Signs Vital Sign Value Unit Date/Time Recent/Initial ? BMI (Body Mass Index) 36.32 kg/m^2 07/25/2022 17: 30 Initial VS Weight Measured 225 lbs 07/25/2022 17:30 Ini tial VS Height 66 in 07/25/2022 17:30 Initial VS BSA (Body Surface Area) 2.18 m^2 07/25/2022 1 7:30 Initial VS BP Systolic 159 mmHg 07/25/2022 17:30 Initial VS BP Diastolic 87 mmHg 07/25/2022 17:30 Initia l VS Respiratory Rate 20 bpm 07/25/2022 17:30 In itial VS Heart Rate 58 bpm 07/25/2022 17:30 Initial VS O2 % BldC Oximetry 100 % 07/25/2022 17:30 Initial VS Body Temperature 35.4 degrees 07/25/2022 17:30 In itial VS BP Systolic 143 mmHg 07/25/2022 18:10 Most Re cent VS BP Diastolic 94 mmHg 07/25/2022 18:10 Most R ecent VS Respiratory Rate 16 bpm 07/25/2022 18:[address] Recent VS Heart Rate 67 bpm 07/25/2022 18:10 Most Rec ent VS O2 % BldC Oximetry 100 % 07/25/2022 18:10 Most Recent VS Allergies Allergy Code Allergy Type Reaction Status No Known Drug Allergies 0 No known drug allergies Active Procedures Unknown or Not Available. History of Immunizations Unknown or Not Available. Problems Problem Code Start Date Resolved Date Status HTN 18280540 Active Diabetes 23217538 Active Results Unknown or Not Available. Active Medications Medications Administered During Visit Medication Dose Units Frequency Route Date/Time of Last Dose SULFA/TRIMETH DS TAB: 800MG/160MG 1 TAB X1 PO 07/25/2022 18:03 Encounters Encounter Diagnosis Diagnosis Code Start Date Follicular disorder, unspecified [id number] 07/25/2022 Social History Unknown or Not Available. Patient Decision Aids Unknown or Not Available. Discharge Instructions You were admitted to [facility] on 07/25/2022 17:22 with a principal diagnosis of Follicular disorder, unspecified You were discharged from [facility] on 07/25/2022 18:12 Should you have any questions prior to discharge, please contact a member of your healthcare team. If you have left the hospital and have any questions, please contact your primary care physician. Chief Complaint and Reason For Visit Chief Complaint Date of Onset POSSIBLE STROKE Function Status Unknown or Not Available. Plan of Care Unknown or Not Available. Referral/Transition of Care Unknown or Not Available.
[2023-07-14 15:24] LABS: Anion Gap 5.5 mmol/L (3-11); BUN 12 mg/dL (7-18); CO2 30.5 mmol/L (21.0-32.0); CREATININE 0.7 mg/dL (0.55-1.02); Calcium 8.9 mg/dL (8.5-10.1); Chloride 104 mmol/L (98-107); Estimated GFR 99.57 (mL/min/1.73m2); Glucose 88 mg/dL (74-106); Potassium 3.6 mmol/L (3.5-5.1); Sodium 140 mmol/L (136-145)
[2023-07-14 15:27] LABS: COMMENT (LAB VIEW ONLY) 126.75 mg/dL; Microalb ug/mg Crea 8.1 ug/mg Cr
== END 2023-07-14 14:43 | disposition home or self-care (01) ==
LOC: NCHCN 14:42
PROVIDERS: PCP Nurse Practitioner Family; Visit Provider Nurse Practitioner Family
DX: E11.9 Type 2 diabetes mellitus without complications (principal)
CPT/HCPCS: 80048; 82043; 82570

== ENCOUNTER 2023-09-02 21:27 | Outpatient (REF) | payer BC, SELFPAY ==
[2023-09-02 21:18] LABS: HCT 37.1 % (36.0-46.0); HGB 12.7 g/dL (11.2-15.7); MCH 30.5 pg (27.0-33.0); MCHC 34.2 % (32.0-36.0); MCV 89 fL (80-95); MPV 8.9 fL (8.0-11.0); Platelet Count 319 10^3/uL (130-400); RBC 4.16 10^6/uL (3.93-5.22); RDW 12.6 % (11.7-14.6); RDW-SD 41.1 fL; WBC 6.05 10^3/uL (4.4-10.8)
[2023-09-02 21:52] LABS: Vitamin D 25 Total 20.5 ng/mL (30-100)
[2023-09-02 21:55] LABS: ALT 24 U/L (14-59); AST 28 U/L (15-37); Albumin 3.4 g/dL (3.4-5.0); Alkaline Phosphatase 94 U/L (46-116); Anion Gap 7.8 mmol/L (3-11); BUN 17 mg/dL (7-18); Bilirubin, Total 0.4 mg/dL (0.2-1.0); CO2 29.2 mmol/L (21.0-32.0); CREATININE 0.9 mg/dL (0.55-1.02); Calcium 8.8 mg/dL (8.5-10.1); Chloride 107 mmol/L (98-107); Estimated GFR 73.64 (mL/min/1.73m2); Folate 8.3 ng/mL (8.6-20.0); Glucose 86 mg/dL (74-106); Magnesium 1.9 mg/dL (1.8-2.4); Potassium 3.7 mmol/L (3.5-5.1); Sodium 144 mmol/L (136-145); Total Protein 6.7 g/dL (6.4-8.2); Vitamin B12 238 pg/mL (193-986)
== END 2023-09-02 21:28 | disposition home or self-care (01) ==
LOC: NCHCN 21:27
PROVIDERS: PCP Nurse Practitioner Family; Visit Provider Nurse Practitioner Family
DX: K52.9 Noninfective gastroenteritis and colitis, unspecified (principal); E11.9 Type 2 diabetes mellitus without complications; R20.2 Paresthesia of skin; R53.83 Other fatigue; E55.9 Vitamin D deficiency, unspecified; Z98.84 Bariatric surgery status
CPT/HCPCS: 80053; 82306; 85027; 82607; 82746; 83735

== ENCOUNTER 2024-07-07 15:01 | Outpatient (REF) | payer BC, SELFPAY ==
[2024-07-07 21:19] LABS: Abs Immature Grans 0.02 10^3/uL (0.0-0.06); Absolute Basophil Count 0.04 10^3/uL (0.0-0.2); Absolute Eosinophil Count 0.21 10^3/uL (0.0-0.7); Absolute Lymphocyte Count 1.71 10^3/uL (1.2-3.4); Absolute Monocyte Count 0.51 10^3/uL (0.1-0.8); Absolute Neutrophil Count 3.17 10^3/uL (1.2-6.7); Basophils % 0.7 %; Eosinophils % 3.7 %; HCT 40.8 % (36.0-46.0); HGB 13.9 g/dL (11.2-15.7); Immature Grans % 0.4 %; Lymphocytes % 30.2 %; MCH 30.1 pg (27.0-33.0); MCHC 34.1 % (32.0-36.0); MCV 88 fL (80-95); MPV 9.1 fL (8.0-11.0); Platelet Count 301 10^3/uL (130-400); RBC 4.62 10^6/uL (3.93-5.22); RDW-SD 38.3 fL; WBC 5.66 10^3/uL (4.4-10.8)
[2024-07-07 21:30] LABS: ALT 27 U/L (14-59); AST 24 U/L (15-37); Albumin 3.7 g/dL (3.4-5.0); Alkaline Phosphatase 101 U/L (46-116); Anion Gap 4.1 mmol/L (3-11); BUN 13 mg/dL (7-18); Bilirubin, Total 0.36 mg/dL (0.2-1.0); CO2 32.9 mmol/L (21.0-32.0); CREATININE 0.7 mg/dL (0.55-1.02); Calcium 8.7 mg/dL (8.5-10.1); Chloride 108 mmol/L (98-107); Estimated GFR 98.95 (mL/min/1.73m2); Glucose 85 mg/dL (74-106); Lipase 99 U/L (<78); Magnesium 2.1 mg/dL (1.8-2.4); Potassium 3.9 mmol/L (3.5-5.1); Sodium 145 mmol/L (136-145); Total Protein 7.1 g/dL (6.4-8.2)
== END 2024-07-07 15:02 | disposition home or self-care (01) ==
LOC: NCHCN 15:01
PROVIDERS: PCP Nurse Practitioner Family; Visit Provider Nurse Practitioner Family
DX: R10.9 Unspecified abdominal pain (principal)
CPT/HCPCS: 80053; 83690; 83735; 85025

== ENCOUNTER 2024-07-08 11:05 | Outpatient (REF) | payer BC, SELFPAY ==
[2024-07-09 23:15] LABS: Campylobacter PCR Negative (Negative); Salmonella PCR Negative (Negative); Shiga Toxin PCR Negative (Negative); Shigella/Enteroinvasive Ecoli Negative (Negative)
[2024-07-12 16:59] LABS: Cryptosporidium, F Negative (Negative); Giardia Ag, F Negative (Negative)
[2024-07-13 12:36] LABS: Helicobacter pylori Ag, Feces Negative (Negative)
== END 2024-07-08 11:06 | disposition home or self-care (01) ==
LOC: NCHCN 11:05
PROVIDERS: PCP Nurse Practitioner Family; Visit Provider Nurse Practitioner Family
DX: R10.9 Unspecified abdominal pain (principal)
CPT/HCPCS: 87328; 87329; 87338; 87505

== ENCOUNTER 2024-08-18 18:51 | Outpatient (REF) | payer BC, SELFPAY ==
[2024-08-18 21:12] LABS: COMMENT (LAB VIEW ONLY) 82.32 mg/dL; Microalb ug/mg Crea 5.1 ug/mg Cr
== END 2024-08-18 18:52 | disposition home or self-care (01) ==
LOC: NCHCN 18:51
PROVIDERS: PCP Nurse Practitioner Family; Visit Provider Nurse Practitioner Family
DX: E11.9 Type 2 diabetes mellitus without complications (principal)
CPT/HCPCS: 82043; 82570

== ENCOUNTER 2024-11-15 21:12 | Outpatient (REF) | payer BC, SELFPAY | END 2024-11-15 21:13 | disposition home or self-care (01) | LOC: LBN 21:12 | PROVIDERS: PCP Nurse Practitioner Family; Visit Provider Nurse Practitioner Family | DX: N30.01 Acute cystitis with hematuria (principal) | CPT/HCPCS: 87077; 87086; 87186 ==

== ENCOUNTER 2025-06-09 21:22 | Outpatient (REF) | payer BC, SELFPAY ==
[2025-06-09 21:37] LABS: HCT 37.0 % (36.0-46.0); HGB 12.8 g/dL (11.2-15.7); MCH 29.8 pg (27.0-33.0); MCHC 34.6 % (32.0-36.0); MCV 86 fL (80-95); MPV 8.9 fL (8.0-11.0); Platelet Count 285 10^3/uL (130-400); RBC 4.29 10^6/uL (3.93-5.22); RDW 11.9 % (11.7-14.6); RDW-SD 37.5 fL; WBC 6.36 10^3/uL (4.4-10.8)
[2025-06-10 17:28] LABS: CRP, High Sensitivity <0.34 mg/L (See Note)
== END 2025-06-09 21:23 | disposition home or self-care (01) ==
LOC: NCHCN 21:22
PROVIDERS: PCP Nurse Practitioner Family; Visit Provider Family Medicine
DX: M79.672 Pain in left foot (principal)
CPT/HCPCS: 85027; 86141